=== PATIENT | female | born 1960 | race African-American/Black ===

== ENCOUNTER → 2016-06-23 | Outpatient (CLI) | payer OTHER ==
[2016-04-04 08:58] VITALS: BP 146/78
[~2016-06-23] MED LIST: CLOP75TA27 PO; CYCL10TA2 PO; LEVO100T PO
--- NOTE | 2016-06-24 13:03 | RAD ---
DATE: 06/23/2016 EXAM: DIGITAL SCREEN BILAT W/CAD HISTORY: Screening COMPARISON: 05/14/2015 This study was interpreted with the benefit of Computerized Aided Detection (CAD). FINDINGS: The breast parenchyma Is heterogeneiously dense, which could reduce sensitivity of mammography. Breast parenchyma level C. There is an apparent biopsy clip in the right breast. There are scattered calcifications in both breasts. Right significantly greater than left. Calcifications in the right breast are most targeted to the upper outer aspect. These calcifications, however, are virtually identical to the previous exam and a study 04/22/2014. A significant change in the appearance of the breasts compared to previous exam is not seen. IMPRESSION: Benign findings BI-RADS CATEGORY: 2 BENIGN FINDING(S) RECOMMENDED FOLLOW-UP: 12M 12 MONTH FOLLOW-UP PQRS compliance statement: Patient information was entered into a reminder system with a target due date 06/23/2017 for the next mammogram. Mammography is a sensitive method for finding small breast cancers, but it does not detect them all and is not a substitute for careful clinical examination. A negative mammogram does not negate a clinically suspicious finding and should not result in delay in biopsying a clinically suspicious abnormality. "Our facility is accredited by the [employer] Mammography Program."
== END | disposition home or self-care (01) ==
LOC: KCIC MAMMO 09:25
PROVIDERS: ATTEND Family Medicine
DX: Z12.31 Encounter for screening mammogram for malignant neoplasm of breast (principal)
CPT/HCPCS: G0202; 77067

== ENCOUNTER → 2016-06-24 | Outpatient (CLI) | payer OTHER ==
[2016-04-04 08:58] VITALS: BP 146/78
== END | disposition home or self-care (01) ==
LOC: LAB 09:23
PROVIDERS: ATTEND Family Medicine
DX: E55.9 Vitamin D deficiency, unspecified (principal)
CPT/HCPCS: 36415; 82306

== ENCOUNTER 2016-08-22 08:16 | Emergency (ER) | payer OTHER ==
[~2016-08-22] VITALS: Ht 152.4 cm; Wt 64.4 kg
[~2016-08-22 08:16] MED LIST changes: +BENZ100C PO; +CLOP75TA PO; +LEVO125T PO; +OSEL75CA PO
--- NOTE | 2016-08-22 08:45 | RAD ---
AP portable chest radiograph 08/22/2016 Clinical History: Chest pain for 3 days. An AP portable erect digital radiograph of the chest was obtained. No previous studies are available for comparison. The cardiac silhouette is normal in size. The thoracic aorta is mildly tortuous. Atherosclerotic calcification of the thoracic aorta is seen. No acute pulmonary infiltrate is noted. No pneumothorax or pleural effusion is seen. Minimal degenerative changes are seen involving the thoracic spine. Impression: No acute abnormality is seen.
--- NOTE | 2016-08-22 08:52 | EKG ---
[facility] [address] [place] [address] Test Date: 2016-08-22 Test Time: 08:26:56 Pat Name: ALMA BERMUDEZ Department: Room: Gender: F Seam Sewer: : 1960 Requested By: RON ESTRADA Order Number: [id number] Reading MD: Ruddy Posada Measurements Intervals Fowler Rate: 72 P: 56 MN: 204 QRS: 7 QRSD: 82 T: 34 QT: 382 QTc: 420 Interpretive Statements SINUS RHYTHM QRS(T) CONTOUR ABNORMALITY CONSISTENT WITH ANTEROSEPTAL INFARCT Electronically Signed On 08-22-2016 11:13:43 CDT by Ruddy Posada
--- NOTE | 2016-08-22 09:13 | ED.ADGEN ---
Past Medical History Past Medical History: Hypothyroid, TIA Past Surgical History: Other Additional Past Surgical Histo: left foot corn and bunion removal Alcohol Use: None Drug Use: None Adult General Chief Complaint Chief Complaint: CHEST PAIN HPI HPI Patient is a 55 year old woman, history of thyroid issues, who presents to the emergency department with complaint of chest pain. She describes it as in the anterior left chest wall, describes it as a very mild pressure, which is been coming or going over the past several days. Denies any shortness of breath, any nausea or vomiting, any weakness in this or tingling, any headache, any injuries. States that there is nothing that makes the pain better or makes it worse, no exertional symptoms, states that it simply comes and goes. She is not experiencing any pain currently. Patient states that she does not have a advanced practice rn or has previously had a stress test. Has not taken any medication prior to coming to the ED. No swelling of the extremities, no recent travel or surgery, history of DVT or PE. Review of Systems Review of Systems Constitutional: Denies fever or chills. [] Eyes: Denies change in visual acuity. [] HENT: Denies nasal congestion or sore throat. [] Respiratory: Denies cough or shortness of breath. [] Cardiovascular: Left anterior chest chest pain. GI: Denies abdominal pain, nausea, vomiting, bloody stools or diarrhea. [] : Denies dysuria. [] Musculoskeletal: Denies back pain or joint pain. [] Integument: Denies rash. [] Neurologic: Denies headache, focal weakness or sensory changes. [] Endocrine: Denies polyuria or polydipsia. [] Lymphatic: Denies swollen glands. [] Psychiatric: Denies depression or anxiety. [] Current Medications Current Medications Current Medications Medications (Trade) Dose Ordered Sig/Saravanan Start Time Stop Time Status Last Admin Dose Admin Fentanyl Citrate (Fentanyl 2ml Vial) 25 mcg PRN Q15MIN PRN 08/22/16 09:15 08/22/16 12:38 DC Nitroglycerin (Nitrostat) 0.4 mg PRN Q5MIN PRN 08/22/16 09:15 08/22/16 12:38 DC Allergies Allergies Allergies Coded Allergies Type Severity Reaction Last Updated Verified NSAIDS (Non-Steroidal Anti-Inflamma Allergy Severe swelling 11/22/13 Yes aspirin Allergy Severe swelling 11/22/13 Yes Physical Exam Physical Exam Constitutional: Well developed, well nourished, no acute distress, non-toxic appearance. [] HENT: Normocephalic, atraumatic, bilateral external ears normal, oropharynx moist, no oral exudates, nose normal. [] Eyes: PERRLA, EOMI, conjunctiva normal, no discharge. [] Neck: Normal range of motion, no tenderness, supple, no stridor. [] Cardiovascular:Heart rate regular rhythm, no murmur [] Lungs & Thorax: Bilateral breath sounds clear to auscultation [] Abdomen: Bowel sounds normal, soft, no tenderness, no masses, no pulsatile masses. [] Skin: Warm, dry, no erythema, no rash. [] Back: No tenderness, no CVA tenderness. [] Extremities: No tenderness, no cyanosis, no clubbing, ROM intact, no edema. [] Neurologic: Alert and oriented X 3, normal motor function, normal sensory function, no focal deficits noted. [] Psychologic: Affect normal, judgement normal, mood normal. [] Current Patient Data Vital Signs Vital Signs Date Time Temp Pulse Resp B/P Pulse Ox O2 Delivery O2 Flow Rate FiO2 08/22/16 11:57 68 145/76 100 Room Air 08/22/16 09:48 18 08/22/16 08:28 98.3 98.3 Lab Values Laboratory Tests Test 08/22/16 09:15 08/22/16 11:21 White Blood Count 3.8x10^3/uL (4.0-11.0) L Red Blood Count 4.65x10^6/uL (3.50-5.40) Hemoglobin 13.0g/dL (12.0-15.5) Hematocrit 39.5% (36.0-47.0) Mean Corpuscular Volume 85fL (79-100) Mean Corpuscular Hemoglobin 28pg (25-35) Mean Corpuscular Hemoglobin Concent 33g/dL (31-37) Red Cell Distribution Width 13.1% (11.5-14.5) Platelet Count 305x10^3/uL (140-400) Neutrophils (%) (Auto) 43% (31-73) Lymphocytes (%) (Auto) 48% (24-48) Monocytes (%) (Auto) 7% (0-9) Eosinophils (%) (Auto) 2% (0-3) Basophils (%) (Auto) 1% (0-3) Neutrophils # (Auto) 1.6x10^3uL (1.8-7.7) L Lymphocytes # (Auto) 1.8x10^3/uL (1.0-4.8) Monocytes # (Auto) 0.2x10^3/uL (0.0-1.1) Eosinophils # (Auto) 0.1x10^3/uL (0.0-0.7) Basophils # (Auto) 0.0x10^3/uL (0.0-0.2) Sodium Level 140mmol/L (136-145) Potassium Level 3.8mmol/L (3.5-5.1) Chloride Level 106mmol/L (98-107) Carbon Dioxide Level 24mmol/L (21-32) Anion Gap 10 (6-14) Blood Urea Nitrogen 11mg/dL (7-20) Creatinine 0.8mg/dL (0.6-1.0) Estimated GFR (Cockcroft-Gault) 90.4 Glucose Level 90mg/dL (70-99) Calcium Level 9.3mg/dL (8.5-10.1) Total Bilirubin 0.7mg/dL (0.2-1.0) Direct Bilirubin 0.2mg/dL (0.0-0.2) Aspartate Amino Transferase (AST) 17U/L (15-37) Alanine Aminotransferase (ALT) 23U/L (14-59) Alkaline Phosphatase 76U/L (46-116) Troponin I Quantitative < 0.017ng/mL (0.000-0.055) BT-Phd-G-Type Natriuretic Peptide 44pg/mL (0-124) Total Protein 7.5g/dL (6.4-8.2) Albumin 3.9g/dL (3.4-5.0) Lipase 116U/L (73-393) POC Troponin I 0.00ng/ml (<0.08) Laboratory Tests 08/22/16 09:15 Laboratory Tests 08/22/16 09:15 EKG EKG EC: Sinus rhythm, heart rate 72 bpm, QTC of 420, CA of 204, QRS of 82, contour abnormality is noted in the anterior septal leads, no ST elevations or depressions, does not meet STEMI criteria. As interpreted by me. [] Radiology/Procedures Radiology/Procedures [] [facility] [address] [place] [address] IMAGING REPORT Signed PATIENT: ALMA REGALADO ACCOUNT: [id number] : 1960 LOCATION: ER AGE: 55 SEX: F EXAM STATUS: PRE ER ORD. PHYSICIAN: RON ESTRADA DO REASON: CP PROCEDURE: PORTABLE CHEST 1V AP portable chest radiograph 08/22/2016 Clinical History: Chest pain for 3 days. An AP portable erect digital radiograph of the chest was obtained. No previous studies are available for comparison. The cardiac silhouette is normal in size. The thoracic aorta is mildly tortuous. Atherosclerotic calcification of the thoracic aorta is seen. No acute pulmonary infiltrate is noted. No pneumothorax or pleural effusion is seen. Minimal degenerative changes are seen involving the thoracic spine. Impression: No acute abnormality is seen. DICTATED and SIGNED BY: KATARINA REECE MD DATE: 08/22/1641 CC: RON ESTRADA DO; BRANDIN HADLEY ~ Course & Med Decision Making Course & Med Decision Making Pertinent Labs and Imaging studies reviewed. (See chart for details) She remains pain-free in the emergency department, laboratory studies and imaging not reveal any acutely concerning findings. Repeat troponin was also negative. I did discuss admission to the hospital for cardiac evaluation, and rule out with patient, at this time she remains pain-free, she states that she would prefer to follow-up as an outpatient, she will return for any concerning symptoms if this did occur. I did discuss findings as above and patient's hope for discharge with close follow-up with LILY Vallecillo for cardiology, as the patient states that she would like to follow-up with the hospitalist group. Patient was scheduled for an appointment and 1:[address] Wharton. I did discuss this with patient, she voiced understanding and agreement with this plan, she was given clear and detailed return instructions and precautions with which she voiced understanding. Patient discharged home in stable condition with plan to follow tomorrow with cardiology, and return to the ED if any concerning symptoms recur. Dragon Disclaimer Dragon Disclaimer This electronic medical record was generated, in whole or in part, using a voice recognition dictation system. Departure Impression: Primary Impression: Chest pain Disposition: 01 HOME, SELF-CARE Condition: IMPROVED RON ESTRADA DO Aug 22, 2016 09:13
[2016-08-22] MEDS ORDERED: NITROGLYCERIN SUBLINGUAL 0.4 MG BOTTLE OF 25. SL PRN (09:15)
[2016-08-22] MEDS ORDERED: FENTANYL PF 100 MCG/2 ML VIAL. IV PRN (09:15)
[2016-08-22 09:42] LABS: CALCIUM 9.3 mg/dL (8.5-10.1); CREATININE 0.8 mg/dL (0.6-1.0); GFR 90.4; POTASSIUM 3.8 mmol/L (3.5-5.1)
[2016-08-22 09:44] LABS: BASO % 1 % (0-3); EOS % 2 % (0-3); HEMATOCRIT 39.5 % (36.0-47.0); LYMPH # 1.8 x10^3/uL (1.0-4.8); LYMPH % 48 % (24-48); MEAN CORPUSCULAR HEMOGLOBIN 28 pg (25-35); MEAN CORPUSCULAR HGB CONC 33 g/dL (31-37); MEAN CORPUSCULAR VOLUME 85 fL (79-100); MONO % 7 % (0-9); NEUT % 43 % (31-73); PLATELET COUNT 305 x10^3/uL (140-400); RED BLOOD COUNT 4.65 x10^6/uL (3.50-5.40); RED CELL DISTRIBUTION WIDTH 13.1 % (11.5-14.5); WHITE BLOOD COUNT 3.8 x10^3/uL (4.0-11.0)
[2016-08-22 09:47] LABS: ALBUMIN 3.9 g/dL (3.4-5.0); DIRECT BILIRUBIN 0.2 mg/dL (0.0-0.2); TOTAL BILIRUBIN 0.7 mg/dL (0.2-1.0); TOTAL PROTEIN 7.5 g/dL (6.4-8.2)
[2016-08-22 11:57] VITALS: BP 145/76
== END 2016-08-22 12:38 | disposition home or self-care (01) ==
LOC: MERGE 08:16 → ER 08:16
DX: R07.9 Chest pain, unspecified (principal); Z88.6 Allergy status to analgesic agent; E03.9 Hypothyroidism, unspecified; Z86.73 Personal history of transient ischemic attack (TIA), and cerebral infarction without residual deficits
CPT/HCPCS: 36415; 71010; 80048; 80076; 83690; 83880; 84484; 85027; 93005; 99285-25

== ENCOUNTER → 2016-08-24 | Outpatient (CLI) | payer OTHER ==
[2016-04-04 08:58] VITALS: BP 146/78
[~2016-08-24] MED LIST changes: +REGADENOSON 0.4 MG/5 ML DISP.SYRIN. IV ONE
--- NOTE | 2016-08-24 15:33 | RAD ---
APPROVED REPORT Test Type: Pharmacological Stress Nurse/Tech: Carly Boland R.N. Test Indications: cp Cardiac History: TIA 20yr ago Medications: see ehr Medical History: see ehr Resting ECG: sr Resting Heart Rate: 80 bpm Resting Blood Pressure: 129/74mmHg Pretest Chest Pain: No chest pain Nurse/Tech Notes lungs cta, heart tones regular, good radial pulse Consent: The procedure was explained to the patient in lay terms. Informed consent was witnessed. Adonis eout was entered into [employer]. History and Stress Test performed by Carly Boland R.N. Pharm. Details Pharmacologic stress testing was performed using 0.4mg per 5ml of regadenoson given intravenously ove r 7-10 seconds. Stress Symptoms pt reported Chest pressure in minute 2 of recovery 6/10, resolved before recovery completed POST EXERCISE Reason for Termination: Infusion complete Max HR: 120 bpm Max Blood Pressure: 148/75mmHg Chest Pain: Yes. see above Arrhythmia: No. ST Change: Yes. ST depression in II III avf, V5-6 noted throughout recovery INTERPRETATION Stress EKG Conclusion: Baseline EKG showed sinus rhythm. No ischemic changes at peak stress. No arr hythmias. Imaging Protocol IMAGE PROTOCOL: Rest Tc-99m/stress Tc-99m 1 day Rest: Stress: Viability: Radiopharm.Tc99m VqwgmdnalTb07c Sestamibi Kmxg57pQm 32mCi Duration 15min. 10min. Img Date 08/24/2016 08/24/2016 Inj-Img Bvmx29iwk. 60min. Rest Admin Site:IV - Left AntecubitalAdministrator:BETHANY Bardales, ARRT (R)(N) Stress Admin Site: IV - Left AntecubitalAdministrator: Braulio Barroso, RT (R)(N) STRESS DATA End Diast. Vol.50.0mlAv. Heart Rate76.0bpm End Syst. Vol.9.0mlCO Index BSA0.0L/min Myocardial Mass99.0gEject. Cdhzitqu15.0% Stress Rates Pk. Fill Rate4.59EDV/secLVtime Pk. Fill 219.08msec Pk. Empty Rate4.97ESV/secLVtime Pk. Wlzyr713.29msec /3 Pk. Fill1.26EDV/sec Stress Scores Regional WT1.00Summed WT4.00 Regional WM0.00Summed WM1.00 Study quality was good. Left Ventricular size was Normal at Rest and Stress. Lung uptake was Normal. Left Ventricular ejection fraction is 82%. The rest and stress images show normal perfusion, normal contraction and thickening. LV Perf. Quant 17 Seg. SSS3.00 17 Seg. SRS0.00 17 Seg. SDS3.00 Stress Defect Extent (% LAD)7.50Rest Defect Extent (% LAD)0.00Rev. Defect Extent (% LAD)0.00 Stress Defect Extent (% LCX) 0.00Rest Defect Extent (% LCX)0.00Rev. Defect Extent (% LCX)0.00 Stress Defect Extent (% RCA)0.00Rest Defect Extent (% RCA)0.00Rev. Defect Extent (% RCA)0.00 Stress Defect Extent (% ANJALI)2.60Rest Defect Extent (% ANJALI)0.00Rev. Defect Extent (% ANJALI)0.00 Conclusion 1. Regadenoson cardioisotope stress test did not show any evidence of ischemia or infarct. 2. Normal left ventricular systolic function with ejection fraction calculated at 82%. 3. Low risk for cardiac events.
== END | disposition home or self-care (01) ==
LOC: NM 09:07
PROVIDERS: ATTEND Internal Medicine Cardiovascular Disease
DX: R07.9 Chest pain, unspecified (principal); R94.31 Abnormal electrocardiogram [ECG] [EKG]
CPT/HCPCS: 78452; 93017; 96374; 96375; 96376; A9500; J2785

== ENCOUNTER 2017-07-30 12:04 | Emergency (ER) | payer BC, OTHER | END 2017-07-30 13:21 | disposition home or self-care (01) | LOC: ER 13:21 | DX: J01.00 Acute maxillary sinusitis, unspecified (principal); E03.9 Hypothyroidism, unspecified; Z86.73 Personal history of transient ischemic attack (TIA), and cerebral infarction without residual deficits; Z88.6 Allergy status to analgesic agent | CPT/HCPCS: 99283 ==

== ENCOUNTER 2018-04-02 16:59 | Emergency (ER) | payer BC, OTHER ==
[~2018-04-02] VITALS: Ht 149.9 cm; Wt 65.8 kg
[~2018-04-02 16:59] MED LIST changes: +AMOX1TAB61 PO; -CLOP75TA27 PO; +CLOP75TA57 PO; +PROM118S5 PO; -REGADENOSON 0.4 MG/5 ML DISP.SYRIN. IV ONE
[2018-04-02 17:00] VITALS: BP 166/86
--- NOTE | 2018-04-02 17:46 | RAD ---
PROCEDURE: CHEST PA LATERAL CLINICAL INDICATION: ER PATIENT. CONGESTION X3 DAYS. PATIENT STATES DARK YELLOW SPUTUM. NO CLINICAL Hx OR PRIORS COMPARISON: None FINDINGS: No pneumothorax identified. Cardiac and mediastinal contours unremarkable. No pulmonary consolidation or acute airspace disease. No acute osseous abnormalities identified. IMPRESSION: No pulmonary consolidation or acute airspace disease. Electronically signed by: Jey Byrd DO (04/02/2018 5:43 PM) [facility]
[2018-04-02 18:20] LABS: INFLUENZA A PATIENT NEGATIVE (NEGATIVE); INFLUENZA B PATIENT NEGATIVE (NEGATIVE)
--- NOTE | 2018-04-02 18:35 | PHYS DOC ---
Past Medical History Past Medical History: Hypothyroid, TIA Past Surgical History: Other Additional Past Surgical Histo: left foot corn and bunion removal Alcohol Use: None Drug Use: None Adult General Chief Complaint Chief Complaint: FLU SYMPTOM HPI HPI Patient is a 57 year old female who presents with sore throat, cough and body aches for 3 days. Patient denies any fever. Review of Systems Review of Systems Constitutional: Reports body aches. Denies fever Eyes: Denies change in visual acuity, redness, or eye pain [] HENT: Reports sore throat. Denies nasal congestion Respiratory: Reports cough, denies shortness of breath [] Cardiovascular: No additional information not addressed in HPI [] GI: Denies abdominal pain, nausea, vomiting, bloody stools or diarrhea [] : Denies dysuria or hematuria [] Musculoskeletal: Denies back pain or joint pain [] Integument: Denies rash or skin lesions [] Neurologic: Denies headache, focal weakness or sensory changes [] All other systems were reviewed and found to be within normal limits, except as documented in this note. Allergies Allergies Allergies Coded Allergies Type Severity Reaction Last Updated Verified NSAIDS (Non-Steroidal Anti-Inflamma Allergy Intermediate swelling hives No aspirin Allergy Intermediate hives swelling 09/23/14 No Physical Exam Physical Exam Constitutional: Well developed, well nourished, no acute distress, non-toxic appearance. [] HENT: Normocephalic, atraumatic, bilateral external ears normal, oropharynx moist, no oral exudates, nose normal. [] Eyes: PERRLA, EOMI, conjunctiva normal, no discharge. [] Neck: Normal range of motion, no tenderness, supple, no stridor. [] Cardiovascular:Heart rate regular rhythm, no murmur [] Lungs & Thorax: Bilateral breath sounds clear to auscultation [] Abdomen: Bowel sounds normal, soft, no tenderness, no masses, no pulsatile masses. [] Skin: Warm, dry, no erythema, no rash. [] Back: No tenderness, no CVA tenderness. [] Extremities: No tenderness, no cyanosis, no clubbing, ROM intact, no edema. [] Neurologic: Alert and oriented X 3, normal motor function, normal sensory function, no focal deficits noted. [] Psychologic: Affect normal, judgement normal, mood normal. [] Current Patient Data Vital Signs Vital Signs Date Time Temp Pulse Resp B/P (MAP) Pulse Ox O2 Delivery O2 Flow Rate FiO2 04/02/18 17:00 98.6 92 20 166/86 (112) 98 Room Air 98.6 Lab Values Laboratory Tests Test 04/02/18 17:27 Influenza Type A Antigen Negative (NEGATIVE) Influenza Type B Antigen Negative (NEGATIVE) EKG EKG [] Radiology/Procedures Radiology/Procedures [] Course & Med Decision Making Course & Med Decision Making Pertinent Labs and Imaging studies reviewed. (See chart for details) This is a 57-year-old female patient presenting to the ED today with symptoms consistent of an upper respiratory viral infection illness including cough sore throat and body aches. Chest x-ray interpreted by radiologist as negative for any acute findings, negative rapid strep, negative influenza A or B. Supportive care measures recommended including pushing fluids, maintain good hand hygiene, OTC medications. Discharged with Tessalon Perles, prednisone for 5 days. Dragon Disclaimer Dragon Disclaimer This electronic medical record was generated, in whole or in part, using a voice recognition dictation system. Departure Departure Impression: Primary Impression: Upper respiratory infection Additional Impressions: Cough Viral pharyngitis Disposition: 01 HOME, SELF-CARE Condition: STABLE Referrals: BRANDIN HADLEY (PCP) Follow-up with your doctor in 1-2 weeks Patient Instructions: Cough, Adult, Fiac-wy-Byhe, Upper Respiratory Infection, Adult, Fnbp-rv-Jvhd, Viral Pharyngitis Additional Instructions: You were evaluated in the emergency room with symptoms consistent of a viral infection. Your chest x-ray was negative for any acute findings, your rapid strep test is negative,you were negative for influenza A or B. Push fluids, maintain good hand hygiene, you can take lqlh-vab-uferfjd medications as needed. Use saltwater gargles. Take the rest of the prescribed medications as ordered. Follow-up with your doctor in the course of this week or next week, come back to the ED at any point symptoms worsen. Scripts Prednisone (PREDNISONE) 50 Mg Tablet 1 TAB PO DAILY, #5 TAB Prov: MUTUNGAKANDACE [employer] 04/02/18 Benzonatate (TESSALON PERLE) 100 Mg Capsule 1 CAP PO TID, #30 CAP Prov: MUTUNGA,KANDACE [employer] 04/02/18 Problem Qualifiers Primary Impression: Upper respiratory infection URI type: unspecified URI Qualified Codes: J06.9 - Acute upper respiratory infection, unspecified KANDACE CORONEL [employer]ER Apr 02, 2018 18:35
[2018-04-02] MEDS ORDERED: BENZ100C PO (18:39)
[2018-04-02] MEDS ORDERED: PRED50TA PO (18:39)
== END 2018-04-02 18:41 | disposition home or self-care (01) ==
LOC: ER 16:59
DX: J02.8 Acute pharyngitis due to other specified organisms (principal); B97.89 Other viral agents as the cause of diseases classified elsewhere; E03.9 Hypothyroidism, unspecified; Z86.73 Personal history of transient ischemic attack (TIA), and cerebral infarction without residual deficits; Z88.6 Allergy status to analgesic agent; Z88.8 Allergy status to other drugs, medicaments and biological substances
CPT/HCPCS: 71046; 87804; 87880; 99284

== ENCOUNTER → 2018-09-21 | Outpatient (CLI) | payer BC ==
[~2018-09-21] MED LIST changes: +PRED50TA PO
--- NOTE | 2018-09-21 14:59 | RAD ---
Chest, 2 views, 09/21/2018: HISTORY: Dyspnea Comparison is made to a study from 04/02/2018. The heart size and pulmonary vascularity are normal. No pulmonary infiltrate is seen. There is no evidence of pleural fluid. Mild spurring is present in the spine. IMPRESSION: No acute cardiopulmonary abnormality is detected. Electronically signed by: Gilbert Morales MD (09/21/2018 2:56 PM) [facility]
== END | disposition home or self-care (01) ==
LOC: RAD 10:09
DX: R06.00 Dyspnea, unspecified (principal)
CPT/HCPCS: 71046

== ENCOUNTER → 2020-09-15 | Outpatient (CLI) | payer BC ==
[~2020-09-15] MED LIST changes: +LEVO-101 PO; -LEVO100T PO
--- NOTE | 2020-09-16 11:52 | RAD ---
DATE: 09/15/2020 7:48 AM EXAM: MG BILAT SCREEN+JOSE LUIS HISTORY: routine screening evaluation. COMPARISON: Prior mammographic imaging to 06/23/2016 Bilateral CC and MLO views of the breasts were performed. Bilateral breast tomosynthesis was performe d in CC and MLO projections. This study was interpreted with the benefit of Computerized Aided Detection (CAD). FINDINGS: Breast Density: HETERO The breast parenchyma Is heterogeneously dense, which could reduce sensitivit y of mammography. Breast parenchyma level C Benign calcifications are present. The parenchymal pattern appears stable. Irregular mass in the superior, lateral right breast approximately 3 cm from the nipple is seen with heterogeneous microcalcifications. There is no suspicious left breast mass, microcalcification or architectural distortion. The visualized axillae are unremarkable. IMPRESSION: Right breast mass with microcalcifications, findings for which additional imaging is advi sed. BI-RADS CATEGORY: 0 INCOMPLETE: NEEDS ADDITIONAL IMAGING EVALUATION AND/OR PRIOR MAMMOGRAMS FOR SONIDO RISON. RECOMMENDED FOLLOW-UP: ADD ADDITIONAL IMAGING The patient will be contacted to return for additional imaging and a supplemental report will follow. Recommend further evaluation with spot views of the ri ght breast as well as full-field ML view and likely ultrasound. PQRS compliance statement: Patient information was entered into a reminder system with a target due d ate for the next mammogram. Mammography is a sensitive method for finding small breast cancers, but it does not detect them all a nd is not a substitute for careful clinical examination. A negative mammogram does not negate a clin ically suspicious finding and should not result in delay in biopsying a clinically suspicious abnorma lity. "Our facility is accredited by the [employer] Mammography Program." Electronically signed by: Ceasar Sykes MD (09/16/2020 11:50 AM) [facility]
== END ==
LOC: MAMMO 09:19
PROVIDERS: ATTEND Family Medicine
DX: Z12.31 Encounter for screening mammogram for malignant neoplasm of breast (principal); N64.89 Other specified disorders of breast
CPT/HCPCS: 77063; 77067

== ENCOUNTER 2021-04-05 07:25 | Emergency (ER) | payer BC ==
[~2021-04-05] VITALS: Ht 152.4 cm; Wt 71.2 kg
[~2021-04-05 07:25] MED LIST changes: +CYCL10TA19 PO; -CYCL10TA2 PO
--- NOTE | 2021-04-05 08:04 | PHYS DOC ---
Past Medical History Past Medical History: Hypothyroid, TIA Additional Past Medical Histor: TIA 1987 Past Surgical History: , Other Additional Past Surgical Histo: left foot corn and bunion removal, HERNIA REPAIR Smoking Status: Never Smoker Alcohol Use: Occasionally Drug Use: None General Adult EDM: Chief Complaint: FLU SYMPTOM HPI: HPI: Patient is a 60 year old female who presents with symptoms that she is concerned are related to influenza. She has had 4 days of cough, congestion. Recently the cough has been productive of yellow phlegm/sputum. She has had subjective fevers, but has not measured a temperature. She has had body aches and fatigue. No exposure to anyone with similar symptoms. States that she has received Covid vaccine and booster, as have all of her household contacts. No N/V/D. No abdominal pain. No chest pain. Denies shortness of breath. Review of Systems: Review of Systems: Constitutional: Reports subjective fever. [] HENT: Reports nasal congestion Respiratory: Reports cough. Denies shortness of breath. [] Cardiovascular: Denies chest pain or edema. [] GI: Denies abdominal pain, nausea, vomiting, bloody stools or diarrhea. [] : Denies dysuria. [] Musculoskeletal: Reports muscle aches and back pain [] Integument: Denies rash. [] Neurologic: Denies headache, focal weakness or sensory changes. [] Endocrine: Denies polyuria or polydipsia. [] Lymphatic: Denies swollen glands. [] Psychiatric: Denies depression or anxiety. [] Heart Score: C/O Chest Pain: No Allergies: Allergies: Allergies Coded Allergies Type Severity Reaction Last Updated Verified NSAIDS (Non-Steroidal Anti-Inflamma Allergy Intermediate swelling hives 04/05/21 No aspirin Allergy Intermediate hives swelling 04/05/21 No Physical Exam: PE: Constitutional: Well developed, well nourished, coughing occasionally HENT: Normocephalic, atraumatic Eyes: conjunctiva normal, no discharge. [] Neck: Normal range of motion, no tenderness, supple, no stridor. [] Cardiovascular:Heart rate regular rhythm, no murmur [] Lungs & Thorax: Normal work of breathing. No distress.? Crackles in the right base, cleared after coughing. Skin: Warm, dry, no erythema, no rash. [] Extremities: no edema, no deformity Neurologic: Alert and oriented X 3, normal motor function, normal sensory function, no focal deficits noted. [] Psychologic: Affect normal, judgement normal Current Patient Data: Vital Signs: Vital Signs Date Time Temp Pulse Resp B/P (MAP) Pulse Ox O2 Delivery O2 Flow Rate FiO2 04/05/21 07:33 98.1 91 18 187/84 (118) 99 Room Air 98.1 EKG: EKG: [] Radiology/Procedures: Radiology/Procedures: [] Impression: [facility] [address] [place] [address] IMAGING REPORT Signed PATIENT: ALMA MORSE DACCOUNT: [id number] : 1960 LOCATION: ER AGE: 60 SEX: F EXAM STATUS: REG ER ORD. PHYSICIAN: BRANDO WOOD MD REASON: productive cough, subjective fever PROCEDURE: CHEST AP ONLY EXAM: CHEST ONE VIEW. HISTORY: Cough, fever. COMPARISON: 09/21/2018. FINDINGS: A frontal view of the chest is obtained. There are no confluent infiltrates. There is no pneumothorax or pleural effusion. The heart is not enlarged. There are atherosclerotic calcifications of the aorta. IMPRESSION: 1. No confluent infiltrates. Electronically signed by: Rupert Rivera MD (04/05/2021 8:21 AM) [id number] DICTATED and SIGNED BY: BRANDO RIVERA MD DATE: 04/05/21 [id number] 0 Course & Med Decision Making: Course & Med Decision Making Pertinent Labs and Imaging studies reviewed. (See chart for details) Patient 60-year-old female who presents with several days of productive cough, nasal congestion, muscle aches. On arrival is afebrile, hemodynamically stable satting 99% on room air. Normal work of breathing. She did have a question of right lower lobe crackles, but cleared after coughing. We will obtain a chest x-ray to evaluate for pneumonia. Will check viral testing for Covid and influenza. No chest pain to necessitate an EKG, she is well-appearing with normal vital signs without recent N/V/D or reason for electrolyte disturbance. Do not feel that blood work would be helpful at this time. 0804 No pna on CXR. 0829 Rapid covid and influenza A&B neg. Covid PCR pending. Vitals have remained reassuring and she remains well appearing. Feel she is safe for discharge at this time. Return precautions for high fevers, shortness of breath, chest pain discussed. 0849 Christi Disclaimer: Christi Disclaimer: This electronic medical record was generated, in whole or in part, using a voice recognition dictation system. Departure Departure Impression: Primary Impression: Upper respiratory infection Disposition: HOME / SELF CARE / HOMELESS Condition: STABLE Referrals: BRANDIN HADLEY (PCP) Schedule an appointment if your symptoms persist. Additional Instructions: Your rapid Covid and influenza test were negative. Your chest x-ray was clear without signs of pneumonia. Your vital signs were reassuring today. Your Covid PCR test is still pending. Please self isolate until you have the results of this test. If it does return positive you will need to self isolate for 10 days from symptom onset and have at least 72 hours of improving symptoms without fever prior to ending your isolation. Please consider self isolating until your symptoms improve regardless of your Covid test, as your illness is likely to be contagious. If you develop high fevers, shaking chills, difficulty breathing, or chest pain please return to the emergency department immediately for reevaluation. BRANDO WOOD MD Apr 05, 2021 08:04
--- NOTE | 2021-04-05 08:23 | RAD ---
EXAM: CHEST ONE VIEW. HISTORY: Cough, fever. COMPARISON: 09/21/2018. FINDINGS: A frontal view of the chest is obtained. There are no confluent infiltrates. There is no pneumothorax or pleural effusion. The heart is not en larged. There are atherosclerotic calcifications of the aorta. IMPRESSION: 1. No confluent infiltrates. Electronically signed by: Rupert Rivera MD (04/05/2021 8:21 AM) [id number]
[2021-04-05 08:47] LABS: INFLUENZA A PATIENT NEGATIVE (NEGATIVE); INFLUENZA B PATIENT NEGATIVE (NEGATIVE)
[2021-04-05 08:56] VITALS: BP 155/92
== END 2021-04-05 08:57 | disposition home or self-care (01) ==
LOC: ER 07:25
DX: J06.9 Acute upper respiratory infection, unspecified (principal); Z20.822 Contact with and (suspected) exposure to COVID-19; E03.9 Hypothyroidism, unspecified; Z86.73 Personal history of transient ischemic attack (TIA), and cerebral infarction without residual deficits; Z88.6 Allergy status to analgesic agent
CPT/HCPCS: 71045; 87426; 87804; 99284; U0003; U0005